=== PATIENT | male | born 1980 ===

== ENCOUNTER → 2017-12-09 | Outpatient (CLI) | payer OTHER ==
[~2017-12-09] MED LIST: FLU60VIA41 IM
--- NOTE | 2017-12-09 15:46 | RADIOLOGY IMAGING REPORT ---
FACILITY: [facility] PATIENT NAME: Cy Lobo : 1980 MR: [id number] V: [id number] EXAM DATE: ORDERING PHYSICIAN: TESHA CALDERON TECHNOLOGIST: Location: [facility] - [place] Patient: Cy Lobo : 1980 Visit/Account:[id number] Date of Sevice: 12/09/2017 MRI right knee Indication: Knee pain. Injury. Comparison: None available. Technique: Multiplanar, multisequence MRI examination is performed of the right knee without contrast . Findings: Medial compartment: Small undersurface tear at the posterior horn medial meniscus. The articular cartilage surfaces are unremarkable. Lateral compartment: No discrete tear of the lateral meniscus. The articular cartilage surfaces are unremarkable. Patellofemoral compartment: Mild chondral irregularity involving the median ridge and lateral facet patella cartilage with no ful l-thickness chondral defect. Bones and marrow: There is no acute or aggressive osseous abnormality visualized bones of the right knee. Ligaments and tendons: ACL and PCL are intact. The extensor mechanism is intact. The MCL is intact. The iliotibial band, biceps femoris tendon, and the fibular collateral ligament is intact The popliteus tendon is also intact. Soft tissues: There is a small amount of fluid seen within the suprapatellar bursa. There is mild prepatellar edema. IMPRESSION: 1. Medial meniscal tear as above. 2. Mild chondromalacia patellofemoral compartment cartilage. Report Dictated By: Faustino Villareal MD at 12/09/2017 3:39 PM Report E-Signed By: Faustino Villareal MD at 12/09/2017 3:41 PM WSN:[id number]
== END ==
LOC: RAD 09:19
PROVIDERS: ATTEND Emergency Medicine
DX: S83.200A Bucket-handle tear of unspecified meniscus, current injury, right knee, initial encounter (principal); M25.461 Effusion, right knee